=== PATIENT | male | born 1955 | race Caucasian/White ===

== ENCOUNTER → 2018-09-30 | Outpatient (CLI) | payer MEDICARE ==
--- NOTE | 2018-09-30 12:12 | CT ---
EXAMINATION TYPE: CT abdomen wo con DATE OF EXAM: 09/30/2018 HISTORY: Right renal mass. Automated Exposure Control for Dose Reduction was Utilized. TECHNIQUE: CT scan of the abdomen is performed without oral or IV contrast. COMPARISON: NONE FINDINGS: Within the limitations of a non-contrast study, the following observations are made. LUNG BASES: No significant abnormality is appreciated. LIVER/GB: Numerous small dependent calcified gallstones in gallbladder seen. No surrounding inflammat ory changes noted. There is subcentimeter low dense lesion left hepatic lobe on axial image 11 too sm all to further characterize but presumed benign PANCREAS: No significant abnormality is seen. SPLEEN: No significant abnormality is seen. ADRENALS: No significant abnormality is seen. KIDNEYS: Left kidney shows no obvious mass, calculus, or hydronephrosis. Right kidney shows slightly unusual anterior positioning without obvious calculus, mass, or hydronephrosis. There are suspected a ccessory lower pole right renal artery distal abdominal aorta just before bifurcation near axial imag e 50. BOWEL: Visualized bowel shows no suspicious dilatation. LYMPH NODES: No greater than 1cm abdominal lymph nodes are appreciated. OSSEOUS STRUCTURES: There is moderate disc space narrowing with vacuum disc phenomenon L4-L5 and L5-S 1 levels. OTHER: No significant additional abnormality is seen. IMPRESSION: No obvious mass identified on noncontrast CT in either kidney.
== END ==
LOC: RADCTMAIN 10:57
PROVIDERS: ATTEND Urology
DX: N28.89 Other specified disorders of kidney and ureter (principal); Z91.013 Allergy to seafood; Z91.048 Other nonmedicinal substance allergy status
CPT/HCPCS: 74150

== ENCOUNTER → 2020-08-20 | Outpatient (CLI) | payer MEDICARE ==
--- NOTE | 2020-08-20 15:09 | US ---
LOWER EXTREMITY VENOUS INSUFFICIENCY CLINICAL HISTORY: I87.2 VENOUS INSUFFICIENCY. SIDE PERFORMED: 1) Color flow is present and patency is documented in the following vessels. No DVT or SVT is noted . Common Femoral Vein Deep Femoral Vein Femoral Vein Popliteal Vein Proximal Calf Veins Greater Saph Vein Upper Small Saph Vein 2) There is venous reflux noted at the following venous levels: Right: DFV, femoral vein, and popliteal vein and small saph vein Left: GSV, small saph vein IMPRESSION: 1. Left lower extremity superficial venous reflux. 2. Right deep venous reflux within the deep femoral vein, popliteal vein, and small saphenous vein
== END | disposition home or self-care (01) ==
LOC: RADUSWWP 14:05
PROVIDERS: ATTEND Surgery Vascular Surgery
DX: I87.2 Venous insufficiency (chronic) (peripheral) (principal)
CPT/HCPCS: 93970

== ENCOUNTER 2021-01-01 14:53 | Emergency (ER) | payer MEDICARE ==
[2021-01-01 17:10] LABS: Basophils % (A) 0 %; Eosinophils # (A) 0.3 k/uL (0-0.7); Eosinophils % (A) 4 %; HCT 41.8 % (39.0-53.0); HGB 13.8 gm/dL (13.0-17.5); Lymphocytes # (A) 1.9 k/uL (1.0-4.8); Lymphocytes % (A) 25 %; MCH 27.2 pg (25.0-35.0); MCHC 33.1 g/dL (31.0-37.0); MCV 82.2 fL (80.0-100.0); Mean Platelet Volume 7.2; Monocytes # (A) 0.5 k/uL (0-1.0); Monocytes % (A) 7 %; Neutrophils # (A) 4.8 k/uL (1.3-7.7); Neutrophils % (A) 62 %; Platelet Count 218 k/uL (150-450); RBC 5.08 m/uL (4.30-5.90); RDW 14.6 % (11.5-15.5); WBC 7.8 k/uL (3.8-10.6)
[2021-01-01 17:19] LABS: Albumin 3.4 g/dL (3.5-5.0); Calcium 9.2 mg/dL (8.4-10.2); Potassium 4.6 mmol/L (3.5-5.1); Total Bilirubin 0.7 mg/dL (0.2-1.3); Total Protein 6.8 g/dL (6.3-8.2)
[2021-01-01 17:50] LABS: Appearance,Urine Clear (Clear); Bilirubin,Urine Negative (Negative); Blood,Urine Small (Negative); Color,Urine Yellow; Glucose,Urine (UA) 1+ (Negative); Ketones,Urine Negative (Negative); Leukocyte Esterase,Urine Negative (Negative); Mucus,Urine Rare /hpf; Nitrite,Urine Negative (Negative); Protein,Urine 3+ (Negative); RBC,Urine 31 /hpf (0-5); Specific Gravity,Urine 1.012 (1.001-1.035); Squamous Epithelial Cell,Urine <1 /hpf (0-4); Urobilinogen,Urine <2.0 mg/dL (<2.0); WBC,Urine 1 /hpf (0-5)
--- NOTE | 2021-01-01 18:04 | ED ---
Male Urogenital HPI - General Chief complaint: Urogenital Stated complaint: Unable to urinate Source: patient Mode of arrival: ambulatory Limitations: no limitations - History of Present Illness Initial comments: Patient is a 65-year-old male past history of diabetes, chronic kidney disease, heart failure who presents emergency department with complaint of urinary difficulty for the past 3 days. Patient states he has not been able to urinate. He has had some dribbling and testicular swelling. No history of retention issues in the past. States that he is on Lasix for chronic lymphedema. He has been taking the medication for the past year. That is have increased swelling in his lower extremities. Denies dysuria or hematuria. No fevers or chills. Denies abdominal fullness. No abdominal pain. Denies any chest pain or shortness of breath. No other alleviating, precipitating or modifying factors - Related Data Home Medications Medication Instructions Recorded Confirmed Atorvastatin [Lipitor] 20 mg PO HS 07/30/16 08/04/16 Furosemide [Lasix] 20 mg PO BID 07/30/16 08/04/16 Gabapentin [Neurontin] 200 mg PO TID 07/30/16 08/04/16 L.acidoph,Paracasei, B.lactis 2 cap PO DAILY 07/30/16 08/04/16 [Probiotic] Losartan/Hydrochlorothiazide 1 tab PO HS 07/30/16 08/04/16 [Losartan-Hctz 100-25 mg Tab] Metoprolol Tartrate [Lopressor] 2 tab PO BID 07/30/16 08/04/16 Multivitamins, Thera [Multivitamin 2 tab PO DAILY 07/30/16 08/04/16 (formulary)] Panax Ginseng Root Extract 1,280 mg PO DAILY 07/30/16 08/04/16 [Ginseng] Potassium Chloride [Klor-Con 10] 10 meq PO BID 07/30/16 08/04/16 allopurinoL [Zyloprim] 400 mg PO DAILY 07/30/16 08/04/16 cloNIDine HCL [Catapres] 0.15 mg PO BID 07/30/16 08/04/16 glipiZIDE [Glucotrol] 10 mg PO AC-BID 07/30/16 08/04/16 hydrALAZINE HCL [Apresoline] 50 mg PO TID 07/30/16 08/04/16 metFORMIN HCL [metFORMIN HCL ER] 1,000 mg PO BID 07/30/16 08/04/16 Previous Rx's Medication Instructions Recorded Aspirin 325 mg PO BID #60 tab 08/07/16 Docusate [Colace] 100 mg PO DAILY #20 capsule 08/07/16 Famotidine [Pepcid] 20 mg PO DAILY #20 tablet 08/07/16 HYDROcodone/APAP 7.5-325MG [[place] 1 - 2 each PO Q6HR PRN #60 tab 08/07/16 7.5-325] traMADol HCl [Ultram] 50 mg PO Q6H PRN #30 tab 08/07/16 Allergies Allergy/AdvReac Type Severity Reaction Status Date / Time iodine Allergy TOLD TO Verified 01/01/21 15:12 AVOID D/T SHELLFISH shellfish derived Allergy Swelling Verified 01/01/21 15:12 IN THROAT Review of Systems ROS Statement: Those systems with pertinent positive or pertinent negative responses have been documented in the HPI. ROS Other: All systems not noted in ROS Statement are negative. Past Medical History Past Medical History: Heart Failure, Diabetes Mellitus, Deep Vein Thrombosis (DVT), GERD/Reflux, Hearing Disorder / Deafness, Hyperlipidemia, Hypertension, Osteoarthritis (OA) Additional Past Medical History / Comment(s): HX SPINAL ENCEPHALITIS 2006 EST. DVT RT LEG 2006. HX GOUT LT LEG. DR Hazel SHARPE RECOMMENDED A SLEEP STUDY. VARICOSE VEINS. WEARS RT KNEE BRACE, "FALLS ALOT;" HAS A CANE BUT DOESN'T WANT TO USE IT. History of Any Multi-Drug Resistant Organisms: None Reported Additional Past Surgical History / Comment(s): VARICOSE VEIN LASER TREATMENT. C OLONOSCOPY. Past Anesthesia/Blood Transfusion Reactions: No Reported Reaction Past Psychological History: No Psychological Hx Reported Smoking Status: Former smoker Past Alcohol Use History: Occasional Past Drug Use History: Marijuana - Past Family History Mother Family Medical History: Cancer General Exam Limitations: no limitations Course Vital Signs 01/01/21 01/01/21 15:09 19:00 Temperature 98.4 F 97.7 F Pulse Rate 75 89 Respiratory 20 17 Rate Blood Pressure 168/98 141/90 O2 Sat by Pulse 98 98 Oximetry Medical Decision Making - Medical Decision Making Upon arrival patient is placed into room 32. A thorough history and physical exam was performed. Patient is bladder scanner does have greater than thousand cc in his bladder. Because this a Cheney is placed. Patient does have output of 1500 mL total. Laboratory studies were conducted. Patient has a creatinine of 2.1. This is compared to patient's previous and is elevated from last drawn 2015. Patient states he does see Dr. Quesada for chronic kidney disease. Urinalysis does demonstrate 31 red blood cells with rare mucous. No signs of infection. These results are discussed the patient. Did recommend that the patient keeps his Cheney in place for 7-10 days. Should follow up with urology for removal. Patient does have chronic kidney disease. Recommended repeat laboratory studies after Cheney is removed. Patient understood this. If he has any new or worsening issues with the Cheney he should return to the emergency department. The patient's understood and agreed to this. Patient was discharged home in stable condition - Lab Data Result diagrams: 01/01/21 17:01 01/01/21 17:01 Lab Results 01/01/21 01/01/21 01/01/21 Range/Units 17:01 17:01 17:01 WBC 7.8 (3.8-10.6) k/uL RBC 5.08 (4.30-5.90) m/uL Hgb 13.8 (13.0-17.5) gm/dL Hct 41.8 (39.0-53.0) % MCV 82.2 (80.0-100.0) fL MCH 27.2 (25.0-35.0) pg MCHC 33.1 (31.0-37.0) g/dL RDW 14.6 (11.5-15.5) % Plt Count 218 (150-450) k/uL MPV 7.2 Neutrophils % 62 % Lymphocytes % 25 % Monocytes % 7 % Eosinophils % 4 % Basophils % 0 % Neutrophils # 4.8 (1.3-7.7) k/uL Lymphocytes # 1.9 (1.0-4.8) k/uL Monocytes # 0.5 (0-1.0) k/uL Eosinophils # 0.3 (0-0.7) k/uL Basophils # 0.0 (0-0.2) k/uL Sodium 137 (137-145) mmol/L Potassium 4.6 (3.5-5.1) mmol/L Chloride 104 (98-107) mmol/L Carbon Dioxide 27 (22-30) mmol/L Anion Gap 6 mmol/L BUN 32 H (9-20) mg/dL Creatinine 2.19 H (0.66-1.25) mg/dL Est GFR (CKD-EPI)AfAm 35 (>60 ml/min/1.73 sqM) Est GFR (CKD-EPI)NonAf 30 (>60 ml/min/1.73 sqM) Glucose 183 H (74-99) mg/dL Calcium 9.2 (8.4-10.2) mg/dL Total Bilirubin 0.7 (0.2-1.3) mg/dL AST 22 (17-59) U/L ALT 13 (4-49) U/L Alkaline Phosphatase 62 (38-126) U/L Total Protein 6.8 (6.3-8.2) g/dL Albumin 3.4 L (3.5-5.0) g/dL Urine Color Yellow Urine Appearance Clear (Clear) Urine pH 6.0 (5.0-8.0) Ur Specific [place] 1.012 (1.001-1.035) Urine Protein 3+ H (Negative) Urine Glucose (UA) 1+ H (Negative) Urine Ketones Negative (Negative) Urine Blood Small H (Negative) Urine Nitrite Negative (Negative) Urine Bilirubin Negative (Negative) Urine Urobilinogen <2.0 (<2.0) mg/dL Ur Leukocyte Esterase Negative (Negative) Urine RBC 31 H (0-5) /hpf Urine WBC 1 (0-5) /hpf Ur Squamous Epith Cells <1 (0-4) /hpf Urine Mucus Rare H (None) /hpf Disposition Clinical Impression: Urinary retention, CKD (chronic kidney disease) Disposition: HOME SELF-CARE Condition: Stable Instructions (If sedation given, give patient instructions): Urinary Retention in Men (ED) Additional Instructions: Please follow up with the urologist in 7-10 days for removal of the cheney catheter. Return to the ED for any new or worsening symptoms. Is patient prescribed a controlled substance at d/c from ED?: No Referrals: None,Stated [Primary Care Provider] - 1-2 days Herbert Rankin MD [STAFF PHYSICIAN] - 1-2 days Time of Disposition: 18:03
[2021-01-01 19:42] VITALS: BP 141/90; PULSE 89; RESP 17; TEMP 97.7
== END 2021-01-01 19:00 | disposition home or self-care (01) ==
LOC: EC 14:53
DX: I13.0 Hypertensive heart and chronic kidney disease with heart failure and stage 1 through stage 4 chronic kidney disease, or unspecified chronic kidney disease (principal); E11.22 Type 2 diabetes mellitus with diabetic chronic kidney disease; I50.9 Heart failure, unspecified; N18.9 Chronic kidney disease, unspecified; E78.5 Hyperlipidemia, unspecified; K21.9 Gastro-esophageal reflux disease without esophagitis; M19.90 Unspecified osteoarthritis, unspecified site; Z87.891 Personal history of nicotine dependence; F12.90 Cannabis use, unspecified, uncomplicated; Z86.718 Personal history of other venous thrombosis and embolism
CPT/HCPCS: 36415; 80053; 81001; 85025; 99283

== ENCOUNTER 2021-05-01 10:10 | Emergency (ER) | payer MEDICARE ==
[2021-05-01 10:19] VITALS: RESP 18; TEMP 97.8
[2021-05-01] MEDS ORDERED: hydrALAZINE HCL 20 MG/ML 1 ML VIAL IVP STA (10:43)
--- NOTE | 2021-05-01 10:45 | ED ---
General Adult HPI - General Chief complaint: Extremity Problem,Nontraumatic Stated complaint: leg swelling & sores Time Seen by Provider: 05/01/21 10:21 Source: patient, RN notes reviewed Mode of arrival: ambulatory Limitations: no limitations - History of Present Illness Initial comments: 65-year-old male with the past medical history of heart failure, diabetes mellitus, hyperlipidemia, hypertension presents to the emergency room for a chief complaint of leg swelling. Patient reports that over the past week or so his leg swelling has worsened. Patient states he has a history of heart failure and has been taking 40 mg of Lasix in the morning and 20 mg at night. Patient states he saw his product distribution specialist to told them he was drinking too much water. Patient states that he is not the point where he cannot walk far distances for the pain and swelling in his legs. Patient states he does not know what to do anymore but cannot go on like this. Patient has no other complaints at this time including shortness of breath, chest pain, abdominal pain, nausea or vomiting, headache, or visual changes. - Related Data Home Medications Medication Instructions Recorded Confirmed Atorvastatin [Lipitor] 20 mg PO HS 07/30/16 05/01/21 Furosemide [Lasix] 40 mg PO DAILY 07/30/16 05/01/21 Gabapentin [Neurontin] 200 mg PO HS 07/30/16 05/01/21 Metoprolol Tartrate [Lopressor] 50 mg PO BID 07/30/16 05/01/21 Potassium Chloride [Klor-Con 10] 10 meq PO BID 07/30/16 05/01/21 cloNIDine HCL [Catapres] 0.3 mg PO BID 07/30/16 05/01/21 Furosemide [Lasix] 20 mg PO W/SUPPER 05/01/21 05/01/21 Losartan Potassium 100 mg PO DAILY 05/01/21 05/01/21 Tamsulosin [Flomax] 0.4 mg PO HS 05/01/21 05/01/21 hydrALAZINE HCL [Apresoline] 100 mg PO TID 05/01/21 05/01/21 Previous Rx's Medication Instructions Recorded Cephalexin [Keflex] 500 mg PO Q6HR 10 Days #40 cap 05/01/21 Allergies Allergy/AdvReac Type Severity Reaction Status Date / Time iodine Allergy TOLD TO Verified 05/01/21 10:58 AVOID D/T SHELLFISH shellfish derived Allergy Swelling Verified 05/01/21 10:58 IN THROAT Review of Systems ROS Statement: Those systems with pertinent positive or pertinent negative responses have been documented in the HPI. ROS Other: All systems not noted in ROS Statement are negative. Past Medical History Past Medical History: Heart Failure, Diabetes Mellitus, Deep Vein Thrombosis (DVT), GERD/Reflux, Hearing Disorder / Deafness, Hyperlipidemia, Hypertension, Osteoarthritis (OA) Additional Past Medical History / Comment(s): HX SPINAL ENCEPHALITIS 2006 EST. DVT RT LEG 2006. HX GOUT LT LEG. DR Hazel SHARPE RECOMMENDED A SLEEP STUDY. VARICOSE VEINS. WEARS RT KNEE BRACE, "FALLS ALOT;" HAS A CANE BUT DOESN'T WANT TO USE IT. History of Any Multi-Drug Resistant Organisms: None Reported Past Surgical History: Orthopedic Surgery Additional Past Surgical History / Comment(s): VARICOSE VEIN LASER TREATMENT. COLONOSCOPY. right knee Past Anesthesia/Blood Transfusion Reactions: No Reported Reaction Past Psychological History: No Psychological Hx Reported Smoking Status: Former smoker Past Alcohol Use History: Occasional Past Drug Use History: Marijuana - Past Family History Mother Family Medical History: Cancer General Exam Limitations: no limitations General appearance: alert, in no apparent distress Head exam: Present: atraumatic, normocephalic, normal inspection Eye exam: Present: normal appearance, PERRL, EOMI. Absent: scleral icterus, conjunctival injection, periorbital swelling ENT exam: Present: normal exam, mucous membranes moist Neck exam: Present: normal inspection, full ROM. Absent: tenderness, meningismus, lymphadenopathy Respiratory exam: Present: normal lung sounds bilaterally. Absent: respiratory distress, wheezes, rales, rhonchi, stridor Cardiovascular Exam: Present: regular rate, normal rhythm, normal heart sounds. Absent: systolic murmur, diastolic murmur, rubs, gallop, clicks GI/Abdominal exam: Present: soft, normal bowel sounds. Absent: distended, tenderness, guarding, rebound, rigid Extremities exam: Present: normal capillary refill, pedal edema, other (Patient has edema of the bilateral lower legs with erythema. Weeping is noted. Patient also has multiple sores.) Course Vital Signs 05/01/21 05/01/21 05/01/21 10:14 10:57 11:39 Temperature 97.8 F Pulse Rate 78 77 Respiratory 18 18 Rate Blood Pressure 212/108 183/94 205/100 O2 Sat by Pulse 98 Oximetry 05/01/21 05/01/21 12:30 13:00 Temperature Pulse Rate 70 70 Respiratory 18 18 Rate Blood Pressure 186/99 196/95 O2 Sat by Pulse Oximetry EKG Findings - EKG Comments: EKG Findings:: Normal sinus rhythm, ventricular rate 77, PT int 136, QTc 466 Medical Decision Making - Medical Decision Making Vitals are stable. Patient is hypertensive however did not take his several BP medications today. Likely also secondary to pain. Patient is well-appearing. Patient does have erythematous edematous bilateral lower extremities. Capillary refill less than 2 seconds in bilateral lower extremities. Neurovascular is intact. CBC CMP unremarkable. Chronic kidney disease is noted. BNP is 338. Chest x-ray shows interstitial prominence that may be in part chronic. No symptoms of pneumonia. Ultrasound was obtained of bilateral lower extremities. There is maybe some chronic nonocclusive thrombus in the right leg however no acute DVT on either side. Patient likely has a cellulitis of the bilateral lower extremities. Will be treated with antibiotics. Given a dose here in the ER. At this time patient is stable for outpatient management as he does have close follow-up with the doctors appointment tomorrow. If he has any worsening symptoms he will return here to the emergency room. - Lab Data Result diagrams: 05/01/21 10:48 05/01/21 10:48 Lab Results 05/01/21 05/01/21 05/01/21 Range/Units 10:48 10:48 10:48 WBC 7.4 (3.8-10.6) k/uL RBC 5.20 (4.30-5.90) m/uL Hgb 13.8 (13.0-17.5) gm/dL Hct 42.5 (39.0-53.0) % MCV 81.8 (80.0-100.0) fL MCH 26.5 (25.0-35.0) pg MCHC 32.4 (31.0-37.0) g/dL RDW 15.1 (11.5-15.5) % Plt Count 222 (150-450) k/uL MPV 7.0 Neutrophils % 65 % Lymphocytes % 24 % Monocytes % 6 % Eosinophils % 2 % Basophils % 0 % Neutrophils # 4.8 (1.3-7.7) k/uL Lymphocytes # 1.8 (1.0-4.8) k/uL Monocytes # 0.4 (0-1.0) k/uL Eosinophils # 0.2 (0-0.7) k/uL Basophils # 0.0 (0-0.2) k/uL PT 10.3 (9.0-12.0) sec INR 1.0 (<1.2) APTT 22.8 (22.0-30.0) sec Sodium 136 L (137-145) mmol/L Potassium 4.5 (3.5-5.1) mmol/L Chloride 103 (98-107) mmol/L Carbon Dioxide 26 (22-30) mmol/L Anion Gap 7 mmol/L BUN 31 H (9-20) mg/dL Creatinine 2.17 H (0.66-1.25) mg/dL Est GFR (CKD-EPI)AfAm 35 (>60 ml/min/1.73 sqM) Est GFR (CKD-EPI)NonAf 31 (>60 ml/min/1.73 sqM) Glucose 160 H (74-99) mg/dL Calcium 9.3 (8.4-10.2) mg/dL Magnesium 2.1 (1.6-2.3) mg/dL Total Bilirubin 0.8 (0.2-1.3) mg/dL AST 18 (17-59) U/L ALT 11 (4-49) U/L Alkaline Phosphatase 68 (38-126) U/L Troponin I (0.000-0.034) ng/mL NT-Pro-B Natriuret Pep pg/mL Total Protein 6.8 (6.3-8.2) g/dL Albumin 3.5 (3.5-5.0) g/dL 05/01/21 05/01/21 Range/Units 10:48 10:48 WBC (3.8-10.6) k/uL RBC (4.30-5.90) m/uL Hgb (13.0-17.5) gm/dL Hct (39.0-53.0) % MCV (80.0-100.0) fL MCH (25.0-35.0) pg MCHC (31.0-37.0) g/dL RDW (11.5-15.5) % Plt Count (150-450) k/uL MPV Neutrophils % % Lymphocytes % % Monocytes % % Eosinophils % % Basophils % % Neutrophils # (1.3-7.7) k/uL Lymphocytes # (1.0-4.8) k/uL Monocytes # (0-1.0) k/uL Eosinophils # (0-0.7) k/uL Basophils # (0-0.2) k/uL PT (9.0-12.0) sec INR (<1.2) APTT (22.0-30.0) sec Sodium (137-145) mmol/L Potassium (3.5-5.1) mmol/L Chloride (98-107) mmol/L Carbon Dioxide (22-30) mmol/L Anion Gap mmol/L BUN (9-20) mg/dL Creatinine (0.66-1.25) mg/dL Est GFR (CKD-EPI)AfAm (>60 ml/min/1.73 sqM) Est GFR (CKD-EPI)NonAf (>60 ml/min/1.73 sqM) Glucose (74-99) mg/dL Calcium (8.4-10.2) mg/dL Magnesium (1.6-2.3) mg/dL Total Bilirubin (0.2-1.3) mg/dL AST (17-59) U/L ALT (4-49) U/L Alkaline Phosphatase (38-126) U/L Troponin I <0.012 (0.000-0.034) ng/mL NT-Pro-B Natriuret Pep 338 pg/mL Total Protein (6.3-8.2) g/dL Albumin (3.5-5.0) g/dL Disposition Clinical Impression: Cellulitis, Bilateral edema of lower extremity Narrative: possible chronic DVT right leg Disposition: HOME SELF-CARE Condition: Good Additional Instructions: Please take antibiotic as directed. Follow-up with your doctor tomorrow morning at your scheduled appointment. Return to the emergency room for any worsening symptoms. Prescriptions: Cephalexin [Keflex] 500 mg PO Q6HR 10 Days #40 cap Is patient prescribed a controlled substance at d/c from ED?: No Referrals: Nonstaff,Physician [Primary Care Provider] - 1-2 days Time of Disposition: 14:37
[2021-05-01 11:09] LABS: Basophils % (A) 0 %; Eosinophils # (A) 0.2 k/uL (0-0.7); Eosinophils % (A) 2 %; HCT 42.5 % (39.0-53.0); HGB 13.8 gm/dL (13.0-17.5); Lymphocytes # (A) 1.8 k/uL (1.0-4.8); Lymphocytes % (A) 24 %; MCH 26.5 pg (25.0-35.0); MCHC 32.4 g/dL (31.0-37.0); MCV 81.8 fL (80.0-100.0); Monocytes # (A) 0.4 k/uL (0-1.0); Monocytes % (A) 6 %; Neutrophils # (A) 4.8 k/uL (1.3-7.7); Neutrophils % (A) 65 %; Platelet Count 222 k/uL (150-450); RDW 15.1 % (11.5-15.5); WBC 7.4 k/uL (3.8-10.6)
[2021-05-01 11:17] LABS: Partial Thromboplastin Time 22.8 sec (22.0-30.0); Prothrombin Time 10.3 sec (9.0-12.0)
[2021-05-01 11:30] LABS: Albumin 3.5 g/dL (3.5-5.0); Calcium 9.3 mg/dL (8.4-10.2); Magnesium 2.1 mg/dL (1.6-2.3); Potassium 4.5 mmol/L (3.5-5.1); Total Bilirubin 0.8 mg/dL (0.2-1.3); Total Protein 6.8 g/dL (6.3-8.2)
--- NOTE | 2021-05-01 11:30 | XR ---
EXAMINATION TYPE: XR chest 2V DATE OF EXAM: 05/01/2021 COMPARISON: None HISTORY: 65-year-old male with chest pain TECHNIQUE: PA and lateral views FINDINGS: Heart normal size. Aorta and pulmonary vasculature within normal limits. Mild interstitial prominence . No paulino consolidation or pleural effusion. IMPRESSION: Interstitial prominence may in part be chronic. Consider bronchitis or chronic asthma. Correlate clin ically to exclude early atypical pneumonias.
[2021-05-01] MEDS ORDERED: MORPHINE SULFATE 4 MG/ML SYRINGE IVP STA (11:48)
[2021-05-01] MEDS ORDERED: SODIUM CHLORIDE 0.9% 500 ML 500 ML IV STA (12:26)
[2021-05-01] MEDS ORDERED: FUROSEMIDE 20 MG TAB PO STA (12:27)
[2021-05-01] MEDS ORDERED: LOSARTAN 50 MG TAB PO STA (12:27)
[2021-05-01] MEDS ORDERED: hydrALAZINE HCL 50 MG TAB PO STA (12:27)
[2021-05-01] MEDS ORDERED: cloNIDine HCL 0.1 MG TAB PO STA (12:27)
[2021-05-01] MEDS ORDERED: METOPROLOL TARTRATE 50 MG TAB PO STA (12:28)
--- NOTE | 2021-05-01 14:28 | US ---
EXAMINATION TYPE: US venous doppler duplex LE BI DATE OF EXAM: 05/01/2021 1:28 PM COMPARISON: 08/20/2020 CLINICAL HISTORY: 65-year-old male DVT, bilateral LE swelling, skin redness with weeping ulcers x wee ks; patient stated has had right leg DVT; large body habitus; CHF SIDE PERFORMED: Bilateral TECHNIQUE: The lower extremity deep venous system is examined utilizing real time linear array sonog eboni with graded compression, doppler sonography and color-flow sonography. VESSELS IMAGED: Common Femoral Vein Deep Femoral Vein Greater Saphenous Vein * Femoral Vein Popliteal Vein Small Saphenous Vein * Proximal Calf Veins (* superficial vessels) Right Leg: Wall echoes are noted upper right Femoral Vein, but color flow patency and compression to wall echoes are documented; intimal wall thickening noted involving one of 2 upper calf veins; other son, is negative for acute DVT. Left Leg: Negative for DVT Edema channels are noted bilateral lower extremity. IMPRESSION: 1. Some mural thickening along the right upper femoral vein and within one of 2 upper calf veins. Norman e chronic adherent, nonocclusive thrombus is not excluded. 2. No evidence for acute DVT on either side. 3. Bilateral lower extremity subcutaneous edema.
[2021-05-01] MEDS ORDERED: cefTRIAXone IN SWFI 1,000 MG/10 ML SYRINGE IVP STA (14:36)
[2021-05-01] MEDS ORDERED: ACET/COD 300 MG/30 MG STARTER PACK 6 TAB BTL PO STA (14:36)
[2021-05-01 14:46] VITALS: BP 184/64; PULSE 85
== END 2021-05-01 15:21 | disposition home or self-care (01) ==
LOC: EC 10:10
DX: L03.116 Cellulitis of left lower limb (principal); L03.115 Cellulitis of right lower limb; E11.9 Type 2 diabetes mellitus without complications; E78.5 Hyperlipidemia, unspecified; I11.0 Hypertensive heart disease with heart failure; I50.9 Heart failure, unspecified; Z79.899 Other long term (current) drug therapy; Z86.718 Personal history of other venous thrombosis and embolism; Z87.891 Personal history of nicotine dependence; Z88.8 Allergy status to other drugs, medicaments and biological substances; Z91.013 Allergy to seafood
CPT/HCPCS: 36415; 93005; 83880; 80053; 83735; 84484; 85025; 85610; 85730; 71046; 93970; 99284; 96374; 96375; 96360; 96361; J2270; J0360; J0696

== ENCOUNTER → 2021-06-02 | Outpatient (CLI) | payer MEDICARE ==
--- NOTE | 2021-06-02 13:34 | US ---
EXAMINATION TYPE: US kidneys/renal and bladder DATE OF EXAM: 06/02/2021 COMPARISON: NONE CLINICAL HISTORY: D41.01 RENAL MASS RT. possible right renal mass seen on CT 2018, no hematuria, no p ain EXAM MEASUREMENTS: Right Kidney: 13.5 x 6.0 x 6.4 cm Left Kidney: 11.6 x 4.3 x 5.6 cm Right Kidney: 4.7cm hypoechoic area noted in mid pole Left Kidney: No hydronephrosis or masses seen Bladder: wnl Bilateral Jets seen: yes There is no evidence for hydronephrosis at this point in time. No nephrolithiasis is seen. The urin papo bladder is anechoic. Bilateral ureteral jets are seen. IMPRESSION: Nonspecific hypoechoic right renal lesion. Consider a contrast CT for further evaluation.
== END | disposition home or self-care (01) ==
LOC: LABWHC1 12:28
PROVIDERS: ATTEND Urology
DX: D41.01 Neoplasm of uncertain behavior of right kidney (principal)
CPT/HCPCS: 36415; 76770; 84153

== ENCOUNTER → 2021-07-09 | Outpatient (CLI) | payer MEDICARE | END | disposition home or self-care (01) | LOC: RADMRIMAIN 11:12 | PROVIDERS: ATTEND Urology | DX: Z53.9 Procedure and treatment not carried out, unspecified reason (principal) ==

== ENCOUNTER 2022-09-27 10:50 | Emergency (ER) | payer MEDICARE ==
[2022-09-27 10:57] VITALS: TEMP 97.9
[2022-09-27] MEDS ORDERED: ONDANSETRON 4 MG/2 ML VIAL IVP STA ×2 (11:20→13:11)
[2022-09-27] MEDS ORDERED: FAMOTIDINE 20 MG/2 ML VIAL IV STA (11:20)
[2022-09-27] MEDS ORDERED: hydrALAZINE HCL 20 MG/ML 1 ML VIAL IVP STA (11:32)
[2022-09-27] MEDS ORDERED: KETOROLAC 15 MG/ML 1 ML VIAL IVP STA (11:32)
[2022-09-27 11:44] LABS: Basophils % (A) 0 %; Eosinophils % (A) 0 %; HCT 49.8 % (39.0-53.0); HGB 16.9 gm/dL (13.0-17.5); Lymphocytes # (A) 0.8 k/uL (1.0-4.8); Lymphocytes % (A) 8 %; MCH 28.6 pg (25.0-35.0); Mean Platelet Volume 8.3; Monocytes # (A) 0.4 k/uL (0-1.0); Monocytes % (A) 4 %; Neutrophils # (A) 8.4 k/uL (1.3-7.7); Neutrophils % (A) 86 %; Platelet Count 162 k/uL (150-450); RBC 5.92 m/uL (4.30-5.90); RDW 13.6 % (11.5-15.5); WBC 9.8 k/uL (3.8-10.6)
--- NOTE | 2022-09-27 11:47 | ED ---
General Adult HPI - General Chief complaint: Abdominal Pain Stated complaint: abd pain, vomiting Time Seen by Provider: 09/27/22 11:09 Source: patient, RN notes reviewed Mode of arrival: ambulatory Limitations: no limitations - History of Present Illness Initial comments: 66 year old male with a past medical history of HTN, and GERD presents to the emergency department for abdominal pain x 1 week. He describes the pain as sharp and constant. He has been seen at [facility] who transferred him to [facility] and was discharged yesterday, 09/26/2022 for same. He reports his symptoms returned as soon as he got home. He reports nausea, vomiting, diarrhea and weakness. He has not tried anything for his symptoms. When asking about patients medical history, pt states "all my medications are in that bag." Patient reports that he takes his medications daily. He denies recent alcohol use. He denies fever, chills, chest pain, palpitations, shortness of breath, hematemesis, melena, hematochezia. - Related Data Home Medications Medication Instructions Recorded Confirmed Atorvastatin [Lipitor] 20 mg PO HS 07/30/16 05/01/21 Furosemide [Lasix] 40 mg PO DAILY 07/30/16 05/01/21 Gabapentin [Neurontin] 200 mg PO HS 07/30/16 05/01/21 Metoprolol Tartrate [Lopressor] 50 mg PO BID 07/30/16 05/01/21 Potassium Chloride [Klor-Con 10 ER] 10 meq PO BID 07/30/16 05/01/21 cloNIDine HCL [Catapres] 0.3 mg PO BID 07/30/16 05/01/21 Furosemide [Lasix] 20 mg PO W/SUPPER 05/01/21 05/01/21 Losartan Potassium 100 mg PO DAILY 05/01/21 05/01/21 Tamsulosin [Flomax] 0.4 mg PO HS 05/01/21 05/01/21 hydrALAZINE HCL [Apresoline] 100 mg PO TID 05/01/21 05/01/21 Previous Rx's Medication Instructions Recorded Cephalexin [Keflex] 500 mg PO Q6HR 10 Days #40 cap 05/01/21 Allergies Allergy/AdvReac Type Severity Reaction Status Date / Time iodine Allergy TOLD TO Verified 09/27/22 10:56 AVOID D/T SHELLFISH shellfish derived Allergy Swelling Verified 09/27/22 10:56 IN THROAT Review of Systems ROS Statement: Those systems with pertinent positive or pertinent negative responses have been documented in the HPI. ROS Other: All systems not noted in ROS Statement are negative. Past Medical History Past Medical History: Heart Failure, Diabetes Mellitus, Deep Vein Thrombosis (DVT), GERD/Reflux, Hearing Disorder / Deafness, Hyperlipidemia, Hypertension, Osteoarthritis (OA) Additional Past Medical History / Comment(s): HX SPINAL ENCEPHALITIS 2006 EST. DVT RT LEG 2006. HX GOUT LT LEG. DR Hazel SHARPE RECOMMENDED A SLEEP STUDY. VARICOSE VEINS. WEARS RT KNEE BRACE, "FALLS ALOT;" HAS A CANE BUT DOESN'T WANT TO USE IT. History of Any Multi-Drug Resistant Organisms: None Reported Past Surgical History: Orthopedic Surgery Additional Past Surgical History / Comment(s): VARICOSE VEIN LASER TREATMENT. COLONOSCOPY. right knee Past Anesthesia/Blood Transfusion Reactions: No Reported Reaction Past Psychological History: No Psychological Hx Reported Smoking Status: Former smoker Past Alcohol Use History: Occasional Past Drug Use History: Marijuana - Past Family History Mother Family Medical History: Cancer General Exam Limitations: no limitations General appearance: alert, in no apparent distress, obese Head exam: Present: atraumatic, normocephalic, normal inspection Eye exam: Present: normal appearance, PERRL, EOMI. Absent: scleral icterus, conjunctival injection, periorbital swelling Pupils: Present: normal accommodation ENT exam: Present: normal exam, mucous membranes moist Neck exam: Present: normal inspection. Absent: tenderness, meningismus, lymphadenopathy Respiratory exam: Present: normal lung sounds bilaterally. Absent: respiratory distress, wheezes, rales, rhonchi, stridor Cardiovascular Exam: Present: regular rate, normal rhythm, normal heart sounds. Absent: systolic murmur, diastolic murmur, rubs, gallop, clicks GI/Abdominal exam: Present: soft, tenderness (generalized ), normal bowel sounds. Absent: distended, guarding, rebound, rigid Extremities exam: Present: normal inspection, full ROM, normal capillary refill. Absent: tenderness, pedal edema, joint swelling, calf tenderness Back exam: Present: normal inspection Neurological exam: Present: alert, oriented X3, CN II-XII intact Psychiatric exam: Present: normal affect, normal mood Skin exam: Present: warm, dry, intact, normal color. Absent: rash Course Vital Signs 09/27/22 09/27/22 09/27/22 10:52 11:24 11:30 Temperature 97.9 F Pulse Rate 81 Respiratory 24 Rate Blood Pressure 224/130 199/117 199/114 O2 Sat by Pulse 97 Oximetry 09/27/22 13:40 Temperature Pulse Rate 88 Respiratory 20 Rate Blood Pressure 192/108 O2 Sat by Pulse 98 Oximetry EKG Findings - EKG Comments: EKG Findings:: I interpreted the following: EKG performed at 11:13. Rate 79 bpm, NSR, NM 147, QRS duration 118, QT/QTc 421/455 Medical Decision Making - Medical Decision Making 66-year-old male presents to the emergency department for acute abdominal pain. Patient had lab work and imaging performed on the emergency department all of which were essentially unremarkable. I discussed in detail the results with the patient patient verbalized understanding and is agreeable with plan for discharge. I discussed return precautions patient verbalized understanding and was discharged in stable condition. I discussed the case with Dr. Yee who agrees with plan for discharge. Was pt. sent in by a medical professional or institution? @ -N/a Did you speak to anyone other than the patient for history? @ -Family Did you review nursing and triage notes? @ -I reviewed nursing and triage note. Were old charts reviewed? @ -I reviewed outside hospital discharge summary from [facility] from 09/26/2022 Differential Diagnosis? @ -Abdominal pain, EKG interpreted by me (3pts min.)? @ EKG performed at 11:13, rate 79 bpm, NM interval 147, QRS 118ms X-rays interpreted by me (1pt min.)? @ -None CT interpreted by me (1pt min.)? @ -I interpreted the following: CT abdomen remarkable. Wound lesions that developed kidney recommendation to follow up in 3-6 months, Multiple cholelithiasis without evidence of the gallbladder enlarged. U/S interpreted by me (1pt. min.)? @ -Not applicable What testing was considered but not performed? (CT, X-rays, U/S, labs)? Why? @ CXR was not ordered due to the nature of the chief complaint. What meds were considered but not given? Why? @ -[none] Did you discuss the management of the patient with other professionals? @ -I discussed the case with Dr. Yee who agrees Patient Is Stable for Discharge Did you reconcile home meds? @ N/A Was smoking cessation discussed for >3mins.? @ -N/A Was critical care preformed (if so, how long)? @ N/A Were there social determinants of health that impacted care today? How? (Homelessness, low income, unemployed, alcoholism, drug addiction, transportation, low edu. Level, literacy, decrease access to med. care, [place] [facility], rehab)? @ -NA Was there de-escalation of care discussed even if they declined? (Discuss DNR or withdrawal of care, Hospice)? @ -NA What co-morbidities impacted this encounter? (DM, HTN, Smoking, COPD, CAD, Cancer, CVA, Hep., AIDS, mental health diagnosis, sleep apnea, morbid obesity)? @ -[DM, HTN, Smoking, COPD, CAD, Cancer, CVA, Hep., AIDS, mental health diagnosis, sleep apnea, morbid obesity?] Was patient admitted / discharged? @ -Discharged in stable condition Undiagnosed new problem with uncertain prognosis? @ -Acute abdominal pain, Nausea and vomiting Drug Therapy requiring intensive monitoring for toxicity (Heparin, Nitro, Insulin, Cardizem)? @ -[none] Were any procedures done? @ -N/A Diagnosis/symptom? @ -Abdominal pain, acute nausea and vomiting Acute, or Chronic, or Acute on Chronic? @ -Acute Uncomplicated (without systemic symptoms) or Complicated (systemic symptoms)? @ -uncomplicated Side effects of treatment? @ -N/A Exacerbation, Progression, or Severe Exacerbation] @ -no Poses a threat to life or bodily function? @ -unlikely - Lab Data Result diagrams: 09/27/22 11:33 09/27/22 11:33 Lab Results 09/27/22 09/27/22 09/27/22 Range/Units 11:33 11:33 11:33 WBC 9.8 (3.8-10.6) k/uL RBC 5.92 H (4.30-5.90) m/uL Hgb 16.9 (13.0-17.5) gm/dL Hct 49.8 (39.0-53.0) % MCV 84.0 (80.0-100.0) fL MCH 28.6 (25.0-35.0) pg MCHC 34.0 (31.0-37.0) g/dL RDW 13.6 (11.5-15.5) % Plt Count 162 (150-450) k/uL MPV 8.3 Neutrophils % 86 % Lymphocytes % 8 % Monocytes % 4 % Eosinophils % 0 % Basophils % 0 % Neutrophils # 8.4 H (1.3-7.7) k/uL Lymphocytes # 0.8 L (1.0-4.8) k/uL Monocytes # 0.4 (0-1.0) k/uL Eosinophils # 0.0 (0-0.7) k/uL Basophils # 0.0 (0-0.2) k/uL Sodium 135 L (137-145) mmol/L Potassium 3.6 (3.5-5.1) mmol/L Chloride 101 (98-107) mmol/L Carbon Dioxide 23 (22-30) mmol/L Anion Gap 11 mmol/L BUN 28 H (9-20) mg/dL Creatinine 2.15 H (0.66-1.25) mg/dL Est GFR (CKD-EPI)AfAm 36 (>60 ml/min/1.73 sqM) Est GFR (CKD-EPI)NonAf 31 (>60 ml/min/1.73 sqM) Glucose 234 H (74-99) mg/dL Calcium 8.9 (8.4-10.2) mg/dL Total Bilirubin 2.2 H (0.2-1.3) mg/dL AST 32 (17-59) U/L ALT 18 (4-49) U/L Alkaline Phosphatase 58 (38-126) U/L Troponin I 0.022 (0.000-0.034) ng/mL Total Protein 7.2 (6.3-8.2) g/dL Albumin 4.0 (3.5-5.0) g/dL Lipase 289 (23-300) U/L Disposition Clinical Impression: Abdominal pain, Nausea and vomiting Disposition: HOME SELF-CARE Condition: Stable Instructions (If sedation given, give patient instructions): Acute Nausea and Vomiting (ED), Abdominal Pain (ED) Additional Instructions: Please return to the nearest ED if symptoms worsen or persist. Is patient prescribed a controlled substance at d/c from ED?: No Referrals: None,Stated [Primary Care Provider] - 1-2 days Time of Disposition: 13:14
[2022-09-27 12:11] LABS: Calcium 8.9 mg/dL (8.4-10.2); Total Bilirubin 2.2 mg/dL (0.2-1.3); Total Protein 7.2 g/dL (6.3-8.2)
[2022-09-27 12:21] LABS: Potassium 3.6 mmol/L (3.5-5.1)
--- NOTE | 2022-09-27 12:25 | CT ---
EXAMINATION TYPE: CT abdomen pelvis wo con DATE OF EXAM: 09/27/2022 COMPARISON: 09/30/2018 HISTORY: 66 year-old male Abdominal pain with nausea and vomiting CT DLP: 1448.9 mGycm. Automated exposure control for dose reduction was used. TECHNIQUE: Contiguous axial scanning of the abdomen and pelvis without IV contrast. Coronal and sagit ana reconstructions performed. FINDINGS: Heart normal size with trace anterior basilar pericardial fluid/effusion. Lung bases clear without pl eural effusion. Numerous layering calculi/gravel within a nondistended gallbladder. Mild generalized anasarca change. 9 mm nodule left adrenal gland was present back in 2018 suggesting a benign adrenal adenoma. Right adrenal gland, spleen, and pancreas within normal limits. Bilateral symmetrical perinephric edema may relate to senescent change or chronic kidney disease. New nodularity has developed in both kidneys measuring up to 1.8 cm on the left and 7 mm on the right . These probably represent cysts but small solid masses not excluded at this time. No hydronephrosis or renal stone. No dilated small bowel, free fluid, or free air. No mesenteric or retroperitoneal lymphadenopathy. Normal appendix. Oral contrast progressed to the distal sigmoid. Mild scattered stool. No pericolonic inflammatory change. Redundant sigmoid colon. Mild circumferential bladder wall thickening. Probably chronic bladder wall hypertrophy. Pronounced prostatomegaly up to 6.9 cm. A few pelvic phleboliths. No abnormal fluid collection in the pelvis or pelvic lymphadenopathy. Bones: Mild degenerative change of the hips. Moderate to advanced spondylotic change L4-L5 and L5-S1. IMPRESSION: 1. Marked prostatomegaly up to 6.9 cm. Correlate with PSA values and any symptoms of BPH/bladder out let obstruction. 2. New round lesions have developed in both kidneys measuring up to 1.8 cm on the left and 7 mm on t he right. These probably represent cysts but small solid masses are not excluded this time. Recommend 3-6 month follow-up CT with contrast to reassess. 3. Cholelithiasis. 9 mm left adrenal adenoma. 4. Correlate for third spacing/fluid overload state given the generalized anasarca change.
[2022-09-27] MEDS ORDERED: ONDANSETRON 4 MG ODT STARTER PACK 2 TAB BTL PO STA (13:11)
[2022-09-27 13:41] VITALS: BP 192/108; PULSE 88; RESP 20
== END 2022-09-27 13:41 | disposition home or self-care (01) ==
LOC: EC 10:50
DX: R10.9 Unspecified abdominal pain (principal); I11.0 Hypertensive heart disease with heart failure; E11.9 Type 2 diabetes mellitus without complications; K21.9 Gastro-esophageal reflux disease without esophagitis; E78.5 Hyperlipidemia, unspecified; I50.9 Heart failure, unspecified; M19.90 Unspecified osteoarthritis, unspecified site; Z86.718 Personal history of other venous thrombosis and embolism; Z87.891 Personal history of nicotine dependence; F12.90 Cannabis use, unspecified, uncomplicated; Z79.899 Other long term (current) drug therapy; Z91.041 Radiographic dye allergy status; Z91.013 Allergy to seafood
CPT/HCPCS: 36415; 93005; 80053; 83690; 84484; 85025; 74176; 99284; 96374; 96375 ×3; 96376; J0360; J2405; J1885; S0119

== ENCOUNTER 2022-12-25 10:19 | Day surgery (SDC) | payer MEDICARE ==
[~2022-12-25 10:19] MED LIST: LACTATED RINGERS 1,000 ML IV SCH; LIDOCAINE 1% (10MG/ML) FOR IV START INTRADERMA PRN
[2022-12-25 10:49] VITALS: TEMP 97.9
[2022-12-25] MEDS ORDERED: ONDANSETRON 4 MG/2 ML VIAL IVP ONE (10:55)
[2022-12-25] MEDS ORDERED: ONDANSETRON 4 MG/2 ML VIAL ONE (10:56)
[2022-12-25 11:11] LABS: Glucose,Whole Blood 151 mg/dL (70-110)
[2022-12-25] MEDS ORDERED: PROPOFOL 10 MG/ML 20 ML VIAL IV ONE (11:21)
--- NOTE | 2022-12-25 11:43 | P.PCN ---
Date of Procedure: 12/25/22 Procedure(s) Performed: BRIEF HISTORY: Patient is a 67-year-old pleasant white male scheduled for an elective colonoscopy as a part of screening for colon cancer. PROCEDURE PERFORMED: Colonoscopy snare polypectomy. PREOPERATIVE DIAGNOSIS: Screening for colon cancer. IV sedation per Anesthesia. PROCEDURE: After informed consent was obtained, the patient, was brought into the endoscopy unit. IV sedation was administered by Anesthesia under continuous monitoring. Digital rectal examination was normal. Initially the Olympus CF-160 flexible video colonoscope was then inserted in the rectum, gradually advanced into the cecum without any difficulty. Careful examination was performed as the scope was gradually being withdrawn. Ileocecal valve and the appendiceal orifice were visualized and appeared normal. Prep was excellent. Mucosa of the cecum, ascending colon, transverse colon, appeared normal. In the descending colon there were 2 polyps measuring 5 mm in size removed by snare polypectomy. In the sigmoid colon there was a 1 cm polyp removed by snare polypectomy located at 35 cm from anal verge. Rest of the descending colon, sigmoid colon, and rectum appeared normal. Retroflexion was performed in the rectum and no lesions were seen. The patient tolerated the procedure well. IMPRESSION: 5 mm 2 descending colon polyp status post polypectomy 1 cm; polyp status post polypectomy RECOMMENDATIONS: Findings of this examination were discussed with the patient as well as his family. He was advised to follow with the biopsy results. If the biopsy was adenoma he can have a repeat colonoscopy in 3 years
[2022-12-25 12:27] VITALS: BP 177/106; PULSE 72; RESP 15
== END 2022-12-25 12:30 | disposition home or self-care (01) ==
LOC: ORWHC2ENDO 10:19
PROVIDERS: ATTEND Internal Medicine Gastroenterology
DX: Z12.11 Encounter for screening for malignant neoplasm of colon (principal); D12.4 Benign neoplasm of descending colon; I13.0 Hypertensive heart and chronic kidney disease with heart failure and stage 1 through stage 4 chronic kidney disease, or unspecified chronic kidney disease; I50.9 Heart failure, unspecified; N18.9 Chronic kidney disease, unspecified; E11.22 Type 2 diabetes mellitus with diabetic chronic kidney disease; E78.5 Hyperlipidemia, unspecified; G47.33 Obstructive sleep apnea (adult) (pediatric); G62.9 Polyneuropathy, unspecified; Z79.899 Other long term (current) drug therapy; Z91.041 Radiographic dye allergy status; Z88.8 Allergy status to other drugs, medicaments and biological substances
CPT/HCPCS: 88305; 45385; J2405; J2704

== ENCOUNTER 2024-06-13 08:22 | Day surgery (SDC) | payer MEDICARE ==
[2024-06-09 10:05] VITALS: BMI 32.5
[~2024-06-13 08:22] MED LIST changes: -LACTATED RINGERS 1,000 ML IV SCH
[2024-06-13] MEDS: IV FLUID CONTINUATION 1,000 ML IV ONE (08:44)
[2024-06-13 09:08] LABS: Glucose,Whole Blood 195 mg/dL (70-110)
[2024-06-13] MEDS: LACTATED RINGERS 1,000 ML IV SCH (09:08)
[2024-06-13 09:11] VITALS: RESP 16; TEMP 97.2
[2024-06-13] MEDS ORDERED: PROPOFOL 10 MG/ML 20 ML VIAL IV ONE (09:14)
[2024-06-13] MEDS ORDERED: LIDOCAINE 1% INJ 10MG/ML (20 ML MDV) ONE (09:14)
--- NOTE | 2024-06-13 09:36 | P.PCN ---
Date of Procedure: 06/13/24 Procedure(s) Performed: BRIEF HISTORY: Patient is a 68-year-old, pleasant, white male scheduled for an upper endoscopy as a part evaluation of buttock admitted nausea vomiting for the last 1 year duration. He does have longstanding history of diabetes mellitus for 15 years duration.. PROCEDURE PERFORMED: Esophagogastroduodenoscopy with biopsy biopsy. PREOPERATIVE DIAGNOSIS: Chronic intermittent nausea vomiting of 1 year duration. IV sedation per anesthesia. PROCEDURE: After informed consent was obtained, the patient was brought into the endoscopy unit. IV sedation was administered by Anesthesia under continuous monitoring. Initially the Olympus GIF-140 video endoscope was inserted into the mouth. Esophagus intubated without any difficulty. It was gradually advanced into the stomach and duodenum and carefully examined. The second part of the duodenum appeared normal. In the bulb of the duodenum there was a 1.2 cm polyp along the duodenal sweep and multiple biopsies were done from this area. The scope at this time was withdrawn to the stomach, adequately insufflated with air, and upon careful examination, mucosa of the antrum, mild antral gastritis and biopsies were done from this area. In the gastric body with small gastric polyps which were biopsied. Rest of the body, cardia and the fundus appeared normal. The scope was then withdrawn into the esophagus. Small hiatal hernia noted. The GE junction was located at 39 cm from the incisors. The short segment of Broussard's esophagus extending 3 to 4 mm proximal to the GE junction that was biopsied. The esophagus appeared normal. There were no erosions or ulcerations seen and the patient tolerated the procedure well. IMPRESSION: 1. Small hiatal hernia and short segment Broussard's esophagus. 2. 1.2 cm duodenal polyp in the duodenal bulb along the duodenal sweep s/p multiple biopsies 3. Small gastric polyps in the gastric body s/p biopsy 4. Mild antral gastritis4.. RECOMMENDATIONS: The findings of this examination were discussed with the patient as well as his family. He was advised to follow-up with the biopsy results. If the biopsy of the duodenal polyp reveals adenoma, we will plan a repeat upper endoscopy for polypectomy in 3 to 6 months. In the meantime continue with Prilosec 20 mg daily and follow antireflux measures.. Advised on aggressive control of blood sugars as patient may have a competent of diabetic gastroparesis.
[2024-06-13 09:50] VITALS: PULSE 52
[2024-06-13 09:55] VITALS: BP 145/77
== END 2024-06-13 10:21 | disposition home or self-care (01) ==
LOC: ORWHC2ENDO 08:22
PROVIDERS: ATTEND Internal Medicine Gastroenterology
DX: K29.50 Unspecified chronic gastritis without bleeding (principal); K31.7 Polyp of stomach and duodenum; K44.9 Diaphragmatic hernia without obstruction or gangrene; K22.70 Barrett's esophagus without dysplasia; I11.0 Hypertensive heart disease with heart failure; I50.9 Heart failure, unspecified; I25.10 Atherosclerotic heart disease of native coronary artery without angina pectoris; M19.90 Unspecified osteoarthritis, unspecified site; H91.90 Unspecified hearing loss, unspecified ear; E11.42 Type 2 diabetes mellitus with diabetic polyneuropathy; K21.9 Gastro-esophageal reflux disease without esophagitis; N40.0 Benign prostatic hyperplasia without lower urinary tract symptoms; Z86.718 Personal history of other venous thrombosis and embolism; Z79.4 Long term (current) use of insulin; Z79.899 Other long term (current) drug therapy; Z91.013 Allergy to seafood; Z88.8 Allergy status to other drugs, medicaments and biological substances
CPT/HCPCS: 43239; 88305